=== PATIENT | male | born 1950 | race African-American/Black ===

== ENCOUNTER 2016-10-17 23:10 | Emergency (ER) | payer OTHER, MEDICAID ==
[~2016-10-17] VITALS: Ht 180.3 cm; Wt 75.0 kg
[~2016-10-17 23:10] MED LIST: ATOR40TA16 PO; CEPH-460 PO; LISI40TA PO; N7030SS INJ; NOVONP2 SQ
[2016-10-17 23:12] VITALS: BP 140/64; PULSE 62; RESP 16; TEMP 99.3; O2SAT 98
[2016-10-17] MEDS ORDERED: predniSONE 50 MG TAB PO ONE (23:45)
[2016-10-17] MEDS ORDERED: IBUPROFEN 600 MG TAB PO ONE (23:45)
--- NOTE | 2016-10-18 00:03 | PD ---
HPI Chief Complaint: Bite or Sting Time Seen by Provider: 23:35 Travel History International Travel<30 days: No Contact w/Intl Traveler<30days: No Traveled to known affect area: No History of Present Illness HPI 66-year-old male here by private vehicle after being stung in his face, chest, and back by multiple wasps at around 7:30 PM. Patient is most concerned about his right eyelid swelling stating that he had cataract surgery about a month ago. He denies any visual changes. No throat swelling, difficulty breathing, or difficulty swallowing. Pain is moderate, constant, worse with movement and palpation. PFSH Past Medical History Autoimmune Disease: No Cancer: No Cardiovascular Problems: No Diabetes: Yes Diminished Hearing: No Endocrine: No Gastrointestinal Disorders: No Musculoskeletal: Yes (KNEE SURGERY) Neurologic: Yes Respiratory: No Immunizations Current: Yes Seizures: Yes Past Surgical History Other Surgery: Yes Social History Alcohol Use: No Tobacco Use: No Substance Use: No Allergies-Medications (Allergen,Severity, Reaction): Coded Allergies: Tylenol (Verified Allergy, Severe, Anaphylaxis, 03/11/16) Reported Meds & Prescriptions Reported Meds & Active Scripts Active Keflex (Cephalexin) 500 Mg Cap 500 Mg PO Q12H 7 Days Reported Novolin N Inj (Insulin Human NPH) 1,000 Unit/10 Ml Vial 8 Units SQ TID Novolin 70/30 Inj (Insulin Human Isoph/Insulin Regular) 1,000 Units/10 Ml Inj 25 Units INJ ACHS Lisinopril 40 Mg Tab 40 Mg PO DAILY Atorvastatin (Atorvastatin Calcium) 40 Mg Tab 40 Mg PO HS Review of Systems Except as stated in HPI: all other systems reviewed are Neg Physical Exam Narrative GENERAL: Well-developed, well-nourished, awake, alert, no apparent distress. SKIN: Focused skin assessment warm/dry. HEAD: Atraumatic. Normocephalic. EYES: Moderate right upper eyelid swelling. Bilateral pupils are equal, round, reactive to light. EOMI. No proptosis. ENT: No nasal bleeding or discharge. Mucous membranes pink and moist. Moderate left upper lip swelling. No drooling or stridor. No hoarseness. No tongue swelling. Normal pharynx. NECK: Trachea midline. No JVD. CARDIOVASCULAR: Regular rate and rhythm. RESPIRATORY: No accessory muscle use. Clear to auscultation. Breath sounds equal bilaterally. GASTROINTESTINAL: Abdomen soft, non-tender, nondistended. MUSCULOSKELETAL: No obvious deformities. No clubbing. No cyanosis. No edema. NEUROLOGICAL: Awake and alert. No obvious cranial nerve deficits. Motor grossly within normal limits. Normal speech. PSYCHIATRIC: Appropriate mood and affect; insight and judgment normal. Data Data Last Documented VS Vital Signs Date Time Temp Pulse Resp B/P Pulse Ox O2 Delivery O2 Flow Rate FiO2 10/17/16 23:12 99.3 62 16 140/64 98 Orders Prednisone (Deltasone) (10/17/16 23:45) Ibuprofen (Motrin) (10/17/16 23:45) [facility] Medical Decision Making Medical Screen Exam Complete: Yes Emergency Medical Condition: Yes Differential Diagnosis Wasp sting, local reaction, mild allergic reaction, anaphylaxis unlikely Narrative Course Patient was given a dose of ibuprofen and prednisone, and on reassessment there is significant improvement in the swelling of his right eyelid and left upper lip. Again the patient is not in any respiratory distress. There is no drooling or stridor on exam. He is likely experiencing a localized reaction secondary to wasp stings. He is stable for discharge home with outpatient follow-up with his primary care physician this week. He will be discharged home with prescription for prednisone. He was also instructed to take Benadryl as needed at home for pruritus. He was informed on when to return to the emergency department. He verbalizes understanding and agreement with plan. Diagnosis Primary Impression: Wasp sting Qualified Code: T63.461A - Wasp sting, accidental or unintentional, initial encounter Referrals: Primary Care Physician 3 days Additional Instructions: Follow-up with your primary care physician this week. Return to the emergency department for worsening symptoms or any other concerns. Scripts Prednisone 50 Mg Tab50 Mg PO DAILY #3 TAB Ref 0 Prov:Jos Palomino MD 10/18/16 Disposition: 01 DISCHARGE HOME Condition: Stable Jos Palomino MD Oct 18, 2016 00:03
[2016-10-18] MEDS ORDERED: PRED50 PO (00:46)
== END 2016-10-18 01:00 | disposition home or self-care (01) ==
LOC: NEPC 23:10
DX: T63.461A Toxic effect of venom of wasps, accidental (unintentional), initial encounter (principal); E11.9 Type 2 diabetes mellitus without complications; Z96.1 Presence of intraocular lens
CPT/HCPCS: 99283; J7512